=== PATIENT | female | born 1995 | race Caucasian/White ===

== ENCOUNTER 2020-01-20 05:11 | Inpatient (IN) ==
[2020-01-20] MEDS ORDERED: MEPERIDINE 50 MG/1 ML VIAL IV PRN (05:25)
[2020-01-20] MEDS ORDERED: ONDANSETRON 4 MG/2 ML VIAL IV PRN ×2 (05:25→14:13)
[2020-01-20] MEDS ORDERED: BUTORPHANOL 2 MG/ML VIAL IV PRN (05:29)
[2020-01-20] MEDS ORDERED: OXYTOCIN/LR 20 UNIT/1,000 ML BAG IV SCH (05:30)
[2020-01-20] MEDS: LACTATED RINGERS 1,000 ML IV SCH ×2 (05:45→10:45)
[2020-01-20 05:49] LABS: Basophils # 0.1 10*3/uL (0.0-0.2); Basophils % 0.5 % (0.0-0.8); Eosinophils # 0.1 10*3/uL (0.0-0.87); Eosinophils % 0.7 % (0.00-10.9); Hematocrit 32.1 VOL% (35.7-47.0); Hemoglobin 10.1 GM/DL (12.0-16.0); Immature Granulocytes % 1.4 %; Immature Granulocytes Absolute 0.16 #; Lymphocytes # 2.1 10*3/uL (1.4-4.0); Lymphocytes % 18.1 % (21.3-54.2); Mean Corpuscular HGB Conc 31.5 GM/DL (32-36); Mean Corpuscular Volume 79.7 FL (87-102); Mean Platelet Volume 10.3 FL (9.6-12.0); Monocytes % 10.9 % (1.7-12.7); Neutrophils % 68.4 % (38.7-73.9); Platelet Count 290 T/CUMM (130-400); Red Blood Count 4.03 MC/CUMM (3.8-5.5); White Blood Count 11.5 T/CUMM (4-12)
[2020-01-20 06:08] LABS: Albumin 3.2 G/DL (3.4-5.0); Bilirubin,Total 0.9 MG/DL (0.2-1.0); Calcium 9.3 MG/DL (8.5-10.1); Osmolality,Calculated 267.1 MOS/KG (273-304); Total Protein 7.2 G/DL (6.4-8.3)
[2020-01-20] MEDS ORDERED: LACTATED RINGERS 1,000 ML IV ONE (07:55)
[2020-01-20] MEDS ORDERED: CITRIC ACID/SODIUM CITRATE 30 ML UDCUP PO ONE (07:55)
[2020-01-20] MEDS ORDERED: FAMOTIDINE 20 MG/2 ML VIAL IV ONE (07:55)
[2020-01-20] MEDS ORDERED: PROMETHAZINE 25 MG/1 ML VIAL IM ONE (07:55)
[2020-01-20] MEDS ORDERED: NALOXONE 0.4 MG/ML VIAL IV PRN (07:55)
[2020-01-20] MEDS ORDERED: diphenhydrAMINE 50 MG/1 ML VIAL IV PRN ×2 (07:55)
[2020-01-20] MEDS ORDERED: hydrOXYzine HCL 25 MG/1 ML VIAL IM PRN (07:55)
[2020-01-20] MEDS ORDERED: fentaNYL 2 MCG/ROPIV 0.2% EPID 100 ML EPIDURAL SCH (08:00)
[2020-01-20] MEDS: ePHEDrine 50 MG/ML AMP IV PRN ×2 (09:40→09:56)
[2020-01-20 10:28] LABS: Apearance,Urine CLEAR (Clear); Bilirubin,Urine Negative (Negative); Blood, Urine Negative (Negative); Glucose,Urine (UA) Negative (Negative); Ketones,Urine 5 mg/dL (Negative); Mucus,Urine Occasional /LPF (Occasional); Nitrite,Urine Negative (Negative); Protein,Urine Negative; Squamous Epithelial Cell,Urine Occasional /HPF (0-10); Urine Color Straw (Yellow); Urine Specific Gravity 1.009 (1.001-1.035); Urine Urobilinogen < 2.0 EU/DL (0.2-1.0); WBC,Urine <1 /HPF (0-6)
[2020-01-20] MEDS ORDERED: LIDOCAINE 1% 50 ML VIAL ONE (13:45)
[2020-01-20] MEDS ORDERED: CARBOPROST TROMETHAMINE 250 MCG/ML AMP IM ONE (13:46)
[2020-01-20] MEDS ORDERED: miSOPROStoL 200 MCG TABLET ONE (13:46)
[2020-01-20] MEDS ORDERED: METHYLERGONOVINE 0.2 MG/1 ML AMP ONE (13:46)
[2020-01-20] MEDS ORDERED: METHYLERGONOVINE 0.2 MG/1 ML AMP IM ONE (14:10)
[2020-01-20] MEDS ORDERED: RHO(D) IMMUNE GLOBULIN 300 MCG SYRINGE IM ONE (14:13)
[2020-01-20] MEDS ORDERED: BISACODYL 10 MG SUPP RECTAL PRN (14:13)
[2020-01-20] MEDS ORDERED: OXYTOCIN/LR 20 UNIT/1,000 ML BAG IV ONE (14:13)
[2020-01-20] MEDS ORDERED: WITCH HAZEL PADS 100/JAR TOP PRN (14:13)
[2020-01-20] MEDS ORDERED: DIPH/TET/ACEL PERT BOOSTER VACCINE 0.5 ML VIAL IM ONE (14:13)
[2020-01-20] MEDS ORDERED: LANOLIN 50% CREAM 0.3 OZ TUBE TOP PRN (14:13)
[2020-01-20] MEDS ORDERED: MEASLES/MUMPS/RUBELLA VACCINE 0.5 ML VIAL SUBCUT ONE (14:13)
[2020-01-20] MEDS ORDERED: oxyCODONE/ACETAMINOPHEN 5-325 MG TABLET PO PRN ×2 (14:13)
[2020-01-20] MEDS ORDERED: HYDROCORTISONE 2.5% RECTAL CREAM 30 GM TUBE TOP PRN (14:13)
[2020-01-20] MEDS ORDERED: BENZOCAINE 20%/MENTHOL 0.5% SPRAY 56 GM CAN TOP PRN (14:13)
[2020-01-20] MEDS ORDERED: ACETAMINOPHEN 325 MG TABLET PO PRN (14:13)
[2020-01-20] MEDS ORDERED: miSOPROStoL 200 MCG TABLET RECTAL ONE (14:25)
[2020-01-20] MEDS: IBUPROFEN 800 MG TABLET PO PRN (19:45)
[2020-01-20] MEDS: DOCUSATE SODIUM 100 MG CAPSULE PO SCH (21:13)
[2020-01-21] MEDS: IBUPROFEN 800 MG TABLET PO PRN ×3 (04:40→20:30)
[2020-01-21 06:03] LABS: Basophils % 0.3 % (0.0-0.8); Eosinophils # 0.1 10*3/uL (0.0-0.87); Eosinophils % 0.6 % (0.00-10.9); Hemoglobin 8.3 GM/DL (12.0-16.0); Immature Granulocytes Absolute 0.14 #; Lymphocytes # 2.3 10*3/uL (1.4-4.0); Lymphocytes % 15.7 % (21.3-54.2); Mean Corpuscular HGB Conc 30.7 GM/DL (32-36); Mean Corpuscular Volume 80.4 FL (87-102); Mean Platelet Volume 10.7 FL (9.6-12.0); Monocytes % 10.3 % (1.7-12.7); Neutrophils % 72.1 % (38.7-73.9); Platelet Count 241 T/CUMM (130-400); Red Blood Count 3.36 MC/CUMM (3.8-5.5); Red Cell Distribution Width 14.2 % (9.3-17.3); White Blood Count 14.4 T/CUMM (4-12)
[2020-01-21] MEDS: FERROUS SULFATE 325 MG TABLET PO SCH ×2 (08:44→21:25)
[2020-01-21] MEDS: DOCUSATE SODIUM 100 MG CAPSULE PO SCH ×2 (08:44→21:25)
[2020-01-22 07:25] VITALS: BP 107/60
[2020-01-22] MEDS: FERROUS SULFATE 325 MG TABLET PO SCH (09:22)
[2020-01-22] MEDS: IBUPROFEN 800 MG TABLET PO PRN (09:22)
[2020-01-22] MEDS: DOCUSATE SODIUM 100 MG CAPSULE PO SCH (09:22)
== END 2020-01-22 13:00 | disposition home or self-care (01) | DRG 560 ==
LOC: N.LD 05:11 → N.OB 17:23
PROVIDERS: ADMIT Specialist; ATTEND Specialist

== ENCOUNTER 2022-01-03 20:40 | Inpatient (IN) ==
[2022-01-03] MEDS ORDERED: BUTORPHANOL 2 MG/ML VIAL IV PRN (20:53)
[2022-01-03] MEDS ORDERED: MEPERIDINE 50 MG/1 ML VIAL IM PRN (20:53)
[2022-01-03] MEDS ORDERED: ONDANSETRON 4 MG/2 ML VIAL IV PRN (20:53)
[2022-01-03 21:44] LABS: Basophils % 0.2 % (0.0-0.8); Eosinophils % 0.3 % (0.00-10.9); Hematocrit 27.5 VOL% (35.7-47.0); Immature Granulocytes % 1.1 %; Immature Granulocytes Absolute 0.13 #; Lymphocytes # 2.2 10*3/uL (1.4-4.0); Lymphocytes % 17.8 % (21.3-54.2); Mean Corpuscular HGB Conc 29.1 GM/DL (32-36); Mean Corpuscular Volume 73.7 FL (87-102); Mean Platelet Volume 10.5 FL (9.6-12.0); Monocytes % 7.9 % (1.7-12.7); Neutrophils % 72.7 % (38.7-73.9); Platelet Count 303 T/CUMM (130-400); Red Blood Count 3.73 MC/CUMM (3.8-5.5); Red Cell Distribution Width 15.2 % (9.3-17.3); White Blood Count 12.1 T/CUMM (4-12)
[2022-01-03 22:00] LABS: Albumin 2.8 G/DL (3.4-5.0); Bilirubin,Total 0.5 MG/DL (0.20-1.00); Calcium 8.3 MG/DL (8.5-10.1); Osmolality,Calculated 271.8 MOS/KG (273-304); Potassium 3.8 MMOL/L (3.5-5.1); Total Protein 6.6 G/DL (6.4-8.2)
[2022-01-04] MEDS: LACTATED RINGERS 1,000 ML IV SCH ×4 (06:06→21:30)
[2022-01-04] MEDS: OXYTOCIN/LR 20 UNIT/1,000 ML BAG IV SCH (06:07)
[2022-01-04] MEDS ORDERED: FAMOTIDINE 20 MG/2 ML VIAL IV ONE (08:01)
[2022-01-04] MEDS ORDERED: LACTATED RINGERS 1,000 ML IV ONE (08:01)
[2022-01-04] MEDS ORDERED: CITRIC ACID/SODIUM CITRATE 30 ML UDCUP PO ONE (08:01)
[2022-01-04] MEDS ORDERED: ePHEDrine 50 MG/ML VIAL IV PRN (08:01)
[2022-01-04] MEDS ORDERED: NALOXONE 0.4 MG/ML VIAL IV PRN (08:01)
[2022-01-04] MEDS ORDERED: diphenhydrAMINE 50 MG/1 ML VIAL IV PRN ×2 (08:01)
[2022-01-04] MEDS ORDERED: TRANEXAMIC ACID 1,000 MG/10 ML VIAL ONE (08:17)
[2022-01-04] MEDS ORDERED: miSOPROStoL 200 MCG TABLET ONE (08:17)
[2022-01-04] MEDS ORDERED: METHYLERGONOVINE 0.2 MG/1 ML AMP ONE (08:18)
[2022-01-04] MEDS ORDERED: CARBOPROST TROMETHAMINE 250 MCG/ML AMP IM ONE (08:18)
[2022-01-04] MEDS: fentaNYL 2 MCG/ROPIV 0.2% EPID 100 ML EPIDURAL SCH (09:22)
[2022-01-04] MEDS ORDERED: fentaNYL 100 MCG/2 ML VIAL ONE (10:46)
[2022-01-04 10:53] LABS: Bacteria,Urine Occasional /HPF (Few); RBC,Urine 5 /HPF (0-4); Urine Color Yellow (Yellow)
[2022-01-04 10:54] LABS: Urine Appearance Clear (Clear)
[2022-01-04 10:55] LABS: Bilirubin,Urine Negative (Negative); Blood, Urine Negative (Negative); Glucose,Urine (UA) Negative (Negative); Ketones,Urine Trace mg/dL (Negative); Nitrite,Urine Negative (Negative); Protein,Urine Negative (Negative); Urine Specific Gravity 1.015 (1.001-1.035); Urine Urobilinogen 0.2 eU/dL (<2.0)
[2022-01-04 12:47] LABS: Cord Arterial Blood HCO3 16.9 MMOL/L
[2022-01-04 12:48] LABS: Cord Venous Blood HCO3 22.1 MMOL/L; Cord Venous Blood PCO2 48.6 MMHG; Cord Venous Blood PO2 21.7 MMHG
[2022-01-04] MEDS ORDERED: DIPH/TET/ACEL PERT BOOSTER VACCINE 0.5 ML VIAL IM ONE (15:29)
[2022-01-04] MEDS ORDERED: OXYTOCIN/LR 20 UNIT/1,000 ML BAG IV ONE (15:29)
[2022-01-04] MEDS ORDERED: BISACODYL 10 MG SUPP RECTAL PRN (15:29)
[2022-01-04] MEDS ORDERED: oxyCODONE/ACETAMINOPHEN 5-325 MG TABLET PO PRN ×2 (15:29)
[2022-01-04] MEDS ORDERED: ACETAMINOPHEN 325 MG TABLET PO PRN (15:29)
[2022-01-04] MEDS ORDERED: BENZOCAINE 20%/MENTHOL 0.5% SPRAY 56 GM CAN TOP PRN (15:29)
[2022-01-04] MEDS ORDERED: HYDROCORTISONE 2.5% RECTAL CREAM 30 GM TUBE TOP PRN (15:29)
[2022-01-04] MEDS ORDERED: LANOLIN 50% CREAM 0.3 OZ TUBE TOP PRN (15:29)
[2022-01-04] MEDS ORDERED: ONDANSETRON 4 MG/2 ML VIAL IV PRN (15:29)
[2022-01-04] MEDS ORDERED: RHO(D) IMMUNE GLOBULIN 300 MCG SYRINGE IM ONE (15:29)
[2022-01-04] MEDS ORDERED: MEASLES/MUMPS/RUBELLA VACCINE 0.5 ML VIAL SUBCUT ONE (15:29)
[2022-01-04] MEDS ORDERED: WITCH HAZEL PADS 100/JAR TOP PRN (15:29)
[2022-01-04] MEDS: IBUPROFEN 800 MG TABLET PO PRN (17:00)
[2022-01-04] MEDS: DOCUSATE SODIUM 100 MG CAPSULE PO SCH (20:39)
[2022-01-05] MEDS: IBUPROFEN 800 MG TABLET PO PRN ×2 (04:22→14:18)
[2022-01-05 06:11] LABS: Basophils # 0.1 10*3/uL (0.0-0.2); Basophils % 0.4 % (0.0-0.8); Eosinophils # 0.1 10*3/uL (0.0-0.87); Eosinophils % 0.9 % (0.00-10.9); Hemoglobin 7.3 GM/DL (12.0-16.0); Immature Granulocytes % 1.1 %; Immature Granulocytes Absolute 0.15 #; Lymphocytes # 2.4 10*3/uL (1.4-4.0); Lymphocytes % 17.5 % (21.3-54.2); Mean Corpuscular HGB Conc 29.2 GM/DL (32-36); Mean Corpuscular Volume 74.6 FL (87-102); Mean Platelet Volume 11.2 FL (9.6-12.0); Monocytes % 9.6 % (1.7-12.7); Neutrophils % 70.5 % (38.7-73.9); Platelet Count 245 T/CUMM (130-400); Red Blood Count 3.35 MC/CUMM (3.8-5.5); Red Cell Distribution Width 15.1 % (9.3-17.3); White Blood Count 13.7 T/CUMM (4-12)
[2022-01-05] MEDS: DOCUSATE SODIUM 100 MG CAPSULE PO SCH ×2 (08:54→21:24)
[2022-01-05] MEDS: IRON (CARBONYL)/VIT C/B12/FA TABLET PO SCH (08:54)
[2022-01-05] MEDS: LACTATED RINGERS 1,000 ML IV SCH ×6 (15:23→15:29)
[2022-01-05] MEDS: fentaNYL 2 MCG/ROPIV 0.2% EPID 100 ML EPIDURAL SCH ×2 (15:31→15:32)
[2022-01-05] MEDS: OXYTOCIN/LR 20 UNIT/1,000 ML BAG IV SCH (15:33)
[2022-01-06] MEDS: IBUPROFEN 800 MG TABLET PO PRN (03:17)
[2022-01-06 07:29] VITALS: BP 99/56
[2022-01-06] MEDS: IRON (CARBONYL)/VIT C/B12/FA TABLET PO SCH (09:30)
[2022-01-06] MEDS: DOCUSATE SODIUM 100 MG CAPSULE PO SCH (09:30)
== END 2022-01-06 12:51 | disposition home or self-care (01) | DRG 560 ==
LOC: N.LD 20:40 → N.OB 01-04 15:47
PROVIDERS: ADMIT Specialist; ATTEND Specialist